=== PATIENT | male | born 1955 | race Caucasian/White ===

== ENCOUNTER 2017-03-06 09:46 | Emergency (ER) | payer BC ==
[2017-03-06] MEDS ORDERED: Dexamethasone IV* 4 MG/ML 1 ML (4 MG) IV SLOW PU ONE (11:03)
[2017-03-06] MEDS ORDERED: Orphenadrine Citrate IV* 30 MG/ML 2 ML VIAL IV ONE (11:03)
[2017-03-06] MEDS ORDERED: Ketorolac INJ* 60 MG/2 ML VIAL IV PUSH ONE (11:03)
[2017-03-06] MEDS ORDERED: NS 0.9% 1000 ML* 1,000 ML IV ONE (11:05)
--- NOTE | 2017-03-06 11:41 | RAD ---
INDICATION: Back pain. COMPARISON: Comparison is made with a prior CT of the abdomen and pelvis from September 09, 2014. TECHNIQUE: 3 views of the lumbar spine were obtained including lateral, AP and a coned-down lateral view of the lumbar sacral junction. FINDINGS: The vertebra are in normal alignment. No fracture is seen. There is moderate to severe disc space narrowing and moderate endplate hypertrophic changes at all lumbar levels consistent with moderate to severe diffuse degenerative disc disease. IMPRESSION: MODERATE TO SEVERE DIFFUSE DEGENERATIVE DISC DISEASE.
--- NOTE | 2017-03-06 11:42 | RAD ---
INDICATION: Back pain. COMPARISON: Comparison is made with a prior chest x-ray study from November 22, 2015. TECHNIQUE: AP and lateral films of the dorsal spine were obtained. FINDINGS: The vertebra are in normal alignment. No fracture is seen. There is disc space narrowing and endplate hypertrophic changes present throughout the dorsal spine consistent with moderate diffuse degenerative disc disease. IMPRESSION: MODERATE DIFFUSE DEGENERATIVE DISC DISEASE.
--- NOTE | 2017-03-06 11:44 | RAD ---
INDICATION: Cough. COMPARISON: There is is made with a prior chest x-ray study from November 22, 2015. TECHNIQUE: Dual-energy PA and lateral views of the chest were obtained. FINDINGS: The heart is within normal limits in size. Mediastinal and hilar contours appear within normal limits. The lungs are clear. There is flattening of the diaphragms suggestive of chronic obstructive pulmonary disease. No pleural effusion is seen. IMPRESSION: FINDINGS SUGGESTIVE OF COPD, NO EVIDENCE FOR ACUTE FINDING.
[2017-03-06 12:51] LABS: Hematocrit 45 % (42-52); Hemoglobin 14.7 g/dl (14.0-18.0); Mean Corpuscular HGB Conc 33 g/dl (31-36); Mean Corpuscular Hemoglobin 29 pg (27-31); Mean Corpuscular Volume 88 fL (80-94); Mean Platelet Volume 9 um3 (7.4-10.4); Red Blood Count 5.08 10^6/ul (4.0-5.4); Red Cell Distribution Width 14 % (10.5-15); White Blood Count 8.8 10^3/ul (3.5-10.8)
[2017-03-06 13:04] LABS: BUN/Creatinine Ratio 15.6 (8-20); C Reactive Protein 3.53 mg/L (< 5.00); Calcium 8.8 mg/dL (8.6-10.3); EGFR African American 102.4 (>60); EGFR Non-African American 79.6 (>60); Globulin 2.8 g/dL (2-4); Total Bilirubin 0.4 mg/dL (0.2-1.0); Total Protein 6.8 g/dL (6.4-8.9)
[2017-03-06 13:12] LABS: Urine Bilirubin Negative (Negative); Urine Glucose Negative (Negative); Urine Nitrite Negative (Negative)
[2017-03-06] MEDS ORDERED: oxyCODONE/Acetamin 5/325 MG* TAB PO ONE (13:34)
[2017-03-06 14:03] VITALS: BP 135/79
--- NOTE | 2017-03-06 17:37 | ED ---
[facility] Catehrine Alfonso, scribed for Balwinder Quesada MD on 03/06/17 at 1030 . Back Pain - HPI Summary HPI Summary: This patient is a 62 year old M presenting to [facility] with a chief complaint of mid back pain since 5 days ago. He reports it feels muscular. The CC is described as spasms. Pt rates the pain 9/10 in severity. Symptoms aggravated by movement and alleviated by nothing. Pt reports a cough and head congestion. Pt denies leg weakness, fecal dysfunction, and urinary symptoms. PMHx of lumbar and cervical herniated discs. - History of Current Complaint Chief Complaint: EDBackInjuryPain Stated Complaint: BACK PAIN Time Seen by Provider: 03/06/17 10:18 Hx Obtained From: Patient Onset/Duration: Sudden Onset, Lasting Days - 5, Still Present Onset/Duration: Started Days Ago - 5, Still Present Back Pain Location: Is Discrete @ - Mid back Severity Initially: Severe Severity Currently: Severe Pain Intensity: 9 Pain Scale Used: 0-10 Numeric Character: Spasmodic Aggravating Symptom(s): Movement Alleviating Symptom(s): Nothing Associated Signs And Symptoms: Positive: Other - Positive cough and head congestion; negative leg weakness, fecal dysfunction, and urinary symptoms. - Allergies/Home Medications Allergies/Adverse Reactions: Allergies Allergy/AdvReac Type Severity Reaction Status Date / Time No Known Allergies Allergy Verified 01/18/17 13:38 PMH/Surg Hx/FS Hx/Imm Hx Endocrine/Hematology History: Denies: Hx Diabetes, Hx Thyroid Disease Cardiovascular History: Reports: Other Cardiovascular Problems/Disorders - RIGHT BUNDLE BRANCH BLOCK Denies: Hx Hypertension, Hx Pacemaker/ICD Respiratory History: Reports: Hx Sleep Apnea Denies: Hx Asthma, Hx Chronic Obstructive Pulmonary Disease (COPD) GI History: Reports: Hx Gastroesophageal Reflux Disease - IN THE PAST, Hx Hiatal Hernia - IN THE PAST Denies: Hx Ulcer, Other GI Disorders History: Reports: Hx Kidney Stones - IN THE PAST Denies: Hx Renal Disease Musculoskeletal History: Reports: Hx Arthritis - NOT DIAGNOSED Denies: Other Musculoskeletal History Sensory History: Reports: Hx Contacts or Glasses - GLASSES Denies: Hx Hearing Aid Opthamlomology History: Reports: Hx Contacts or Glasses - GLASSES Neurological History: Reports: Hx Nerve Disease - NERVE PAIN RIGHT HAND FROM LACERATION Denies: Other Neuro Impairments/Disorders Psychiatric History: Denies: Hx Panic Disorder, Other Psychiatric Issues/Disorders - Cancer History Cancer Type, Location and Year: BASAL CELLS REMOVED - Lt ARM-TOP HEAD Hx Chemotherapy: No Hx Radiation Therapy: No - Surgical History Surgery Procedure, Year, and Place: Gastric bypass 2005;. Right knee meniscus - [facility]-2004;. KIDNEY STONES. Parathyroidectomy;. RIGHT Elbow surg . T/ A A CHILD. [facility];. r- wrist laceration -february 2015 [facility];. TOTAL RIGHT KNEE Hx Anesthesia Reactions: No Infectious Disease History: Denies: Hx Hepatitis, Hx Human Immunodeficiency Virus (HIV), History Other Infectious Disease, Traveled Outside the [place] in Last 30 Days - Family History Known Family History: Positive: Cardiac Disease, Diabetes, Other - cancer - Social History Alcohol Use: Rare Alcohol Amount: 1 PER MONTH Substance Use Type: Reports: None Smoking Status (MU): Former Smoker Type: Cigarettes Amount Used/How Often: 1/2 PACK A DAY Have You Smoked in the Last Year: No Review of Systems Positive: Other - Positive head congestion Positive: Cough Positive: Other - Negative fecal dysfunction Positive: no symptoms reported Positive: Other - Positive mid back pain Neurological: Other - Negative leg weakness All Other Systems Reviewed And Are Negative: Yes Physical Exam - Summary Physical Exam Summary: General: Patient is a well developed male without any distress that is laying comfortably in the stretcher. Skin: [place], warm, dry HEAD AND FACE: No signs of trauma. EYES: PERRLA, EOMI x 2. EARS: Hearing grossly intact. MOUTH: Oropharynx within normal limits. NECK: Supple, trachea is midline, no adenopathy, no JVD. CHEST: Symmetric, no tenderness at palpation LUNGS: CTA bilaterally, no rales, rhonchi or wheezing CVS: RRR, no murmur, rub, or gallop ABDOMEN: soft and Nontender without masses, no guarding or rebound. Bowel sounds are active. No Hepato-splenomegaly. No signs of inguinal hernias. BACK: Patient walked into the ED room with symmetric ambulation, No signs of limping, antalgic, able to bear weight. No signs of trauma, no soft tissue or muscle tenderness, positive spasm in the Paraspinal muscles of the T and L spine. No masses palpated. No CVAT, no flank ecchymosis . No sacroiliac notch tenderness, No saddle anesthesia ROM: flexion/ extension/ lateral bending and rotation, note if limited or causes pain Straight Leg Raise: negative Patellar reflexes: brisk, symmetric Muscle strength lower extremities. Dorsiflexion/ plantar flexion of ankles nomal. normal Heel/ toe walk Lower extremities: Femoral, popliteal, posterior tibial, and pedal pulses with in normal, Rectal: Patient refused the exam Triage Information Reviewed: Yes Vital Signs On Initial Exam: Initial Vitals Temp Pulse Resp BP Pulse Ox 97.8 F 65 20 133/91 95 03/06/17 10:06 03/06/17 10:06 03/06/17 10:06 03/06/17 10:06 03/06/17 10:06 Vital Signs Reviewed: Yes Diagnostics - Vital Signs Vital Signs Temp Pulse Resp BP Pulse Ox 03/06/17 10:06 97.8 F 65 20 133/91 95 - Laboratory Result Diagrams: 03/06/17 12:30 03/06/17 12:30 Lab Statement: Any lab studies that have been ordered have been reviewed, and results considered in the medical decision making process. - Radiology CXR Radiology Interpretation Completed By: Radiologist - FINDINGS SUGGESTIVE OF COPD , NO EVIDENCE FOR ACUTE FINDING. Thoracic Spine X-Ray Radiology Interpretation Completed By: Radiologist - MODERATE DIFFUSE DEGENERATIVE DISC DISEASE. Lumbar Spine X-Ray Radiology Interpretation Completed By: Radiologist - MODERATE TO SEVERE DIFFUSE DEGENERATIVE DISC DISEASE. Re-Evaluation - Re-Evaluation First Eval Re-Evaluation Time: 13:48 Change: Improved Comment: Patient reports his symptoms have improved in the ED course. Back Pain Course/Dx - Course Course Of Treatment: This patient is a 62 year old M presenting to [facility] with a chief complaint of mid back pain since 5 days ago. He reports it feels muscular. The CC is described as spasms. Pt rates the pain 9/10 in severity. Symptoms aggravated by movement and alleviated by nothing. Pt reports a cough and head congestion. Pt denies leg weakness, fecal dysfunction, and urinary symptoms. PMHx of lumbar and cervical herniated discs. Assessment/Plan: Test results without any significant abnormalities. Urinalysis negative for UTI. CXR reveals FINDINGS SUGGESTIVE OF COPD, NO EVIDENCE FOR ACUTE FINDING. Thoracic Spine X-Ray reveals MODERATE DIFFUSE DEGENERATIVE DISC DISEASE. Lumbar Spine X-Ray reveals MODERATE TO SEVERE DIFFUSE DEGENERATIVE DISC DISEASE. In the ED course patient was given Decadron, Toradol, Norflex, and Percocet for the pain. Patients pain improved and he will be discharged with PCP follow up. Patient is hemodynamically stable and A&Ox3. Patient was Promethazine with codeine for a dry cough secondary to an URI. At this point I discussed all the findings and test results with the patient. Patient was instructed to return to the emergency room immediately if any of the symptoms return or worsens. Patient understands and agrees. Patient is able to ambulate freely w/o aid or limp in the ER. Plan of care was discussed with the patient and patient understands and agrees. All questions were answered at patient satisfaction. There were no further complaints or concerns. Neurological exam before discharge: Patient is alert and oriented x 3. No acute neurological deficits. Patient is hemodynamically stable. Patient is to follow up with primary care physician in the next 2 3 days. He understands and agrees. - Diagnoses Differential Diagnosis/HQI/PQRI: Positive: Fracture, Herniated Disc, Strain, Sprain Provider Diagnoses: Back pain Discharge - Discharge Plan Condition: Stable Disposition: HOME Prescriptions: Methocarbamol [Robaxin-750 MG TAB] 750 mg PO TID #12 tab Methylprednisolone [Medrol Dosepak 4 MG*] 4 mg PO .SEE IRMA INSTRUCTION #1 irma Phenyleph-Promethazine W/ Cod [Promethazine Vc/Codeine] 1 syp PO Q6H PRN #120 syp MDD 4 syp PRN Reason: Cough oxyCODONE/Acetamin 5/325 MG* [Percocet 5/325 TAB*] 1 tab PO Q6H PRN #10 tab MDD 4 PRN Reason: Pain Patient Education Materials: Acute Cough (ED), Back Pain (ED) Referrals: Gabriel Cage MD [Primary Care Provider] - The documentation as recorded by the [place] tanner Alfonso accurately reflects the service I personally performed and the decisions made by , Balwinder Quesada MD.
== END 2017-03-06 14:02 | disposition home or self-care (01) ==
LOC: ED 09:46
DX: M54.6 Pain in thoracic spine (principal); M51.36 Other intervertebral disc degeneration, lumbar region; M51.34 Other intervertebral disc degeneration, thoracic region; R05 Cough; R09.89 Other specified symptoms and signs involving the circulatory and respiratory systems; I45.10 Unspecified right bundle-branch block; Z98.84 Bariatric surgery status; Z87.442 Personal history of urinary calculi; Z96.651 Presence of right artificial knee joint; Z87.891 Personal history of nicotine dependence
CPT/HCPCS: 36415; 71020; 72070; 72100; 80053; 81003; 85025; 86140; 96374; 96375; 99283; A9270-GY; J1100; J1885; J2360

== ENCOUNTER 2019-09-12 21:24 | Emergency (ER) | payer BC ==
[2019-09-12 21:54] LABS: ABS Basophils 0.1 10^3/ul (0-0.2); ABS Eosinophils 0.9 10^3/ul (0-0.6); ABS Lymphocytes 1.6 10^3/ul (1.0-4.8); ABS Monocytes 0.8 10^3/ul (0-0.8); ABS Neutrophils 4.1 10^3/ul (1.5-7.7); Eosinophil % 11.7 %; Hematocrit 44 % (42-52); Hemoglobin 14.7 g/dL (14.0-18.0); Mean Corpuscular HGB Conc 34 g/dL (31-36); Mean Corpuscular Hemoglobin 30 pg (27-31); Mean Corpuscular Volume 89 fL (80-94); Mean Platelet Volume 8.8 fL (7.4-10.4); Nucleated Red Blood Cells % 0.1; Platelet Count 253 10^3/uL (150-450); Red Blood Count 4.92 10^6 /uL (4.18-5.48); Red Cell Distribution Width 15 % (10-15); White Blood Count 7.5 10^3/uL (3.5-10.8)
--- NOTE | 2019-09-12 21:55 | ED ---
Shortness of Breath - HPI Summary HPI Summary: Patient complains of intermittent shortness of breath 2 weeks. Symptoms are not related to exertion, denies chest pain. Patient states symptoms occurr while sitting, lasts 20-30 minutes at a time and are improved when patient stands up and walks around. Symptoms are new onset. Patient able to sleep flat , denies peripheral edema, decrease in endurance during daily activities, fever , cough, sore throat, CP, N/3/D, abdominal pain, change in urine, change in BM. Medical history sleep apnea, uses CPAP at night. Positive smoker half a pack a day. Denies EtOH or recreational drug use. - History of Current Complaint Chief Complaint: EDShortnessOfBreath Time Seen by Provider: 09/12/19 21:35 Hx Obtained From: Patient Onset/Duration: Gradual Onset, Lasting Weeks Timing: Intermittent Episodes Lasting: Current Severity: Moderate Dyspnea At: Rest Alleviating Factors: Upright Position Associated Signs & Symptoms: Negative - Allergy/Home Medications Allergies/Adverse Reactions: Allergies Allergy/AdvReac Type Severity Reaction Status Date / Time No Known Allergies Allergy Verified 09/12/19 21:26 PMH/Surg Hx/FS Hx/Imm Hx Endocrine/Hematology History: Denies: Hx Diabetes, Hx Thyroid Disease Cardiovascular History: Reports: Other Cardiovascular Problems/Disorders - RIGHT BUNDLE BRANCH BLOCK Denies: Hx Hypertension, Hx Pacemaker/ICD Respiratory History: Reports: Hx Sleep Apnea Denies: Hx Asthma, Hx Chronic Obstructive Pulmonary Disease (COPD) GI History: Reports: Hx Gastroesophageal Reflux Disease - IN THE PAST, Hx Hiatal Hernia - IN THE PAST Denies: Hx Ulcer, Other GI Disorders History: Reports: Hx Kidney Stones - IN THE PAST Denies: Hx Renal Disease Musculoskeletal History: Reports: Hx Arthritis - NOT DIAGNOSED, Hx Back Problems Denies: Other Musculoskeletal History Sensory History: Reports: Hx Contacts or Glasses - GLASSES Denies: Hx Hearing Aid Opthamlomology History: Reports: Hx Contacts or Glasses - GLASSES Neurological History: Reports: Hx Nerve Disease - NERVE PAIN RIGHT HAND FROM LACERATION Denies: Other Neuro Impairments/Disorders - PAIN CLINIC PT. Psychiatric History: Denies: Hx Panic Disorder, Other Psychiatric Issues/Disorders - Cancer History Cancer Type, Location and Year: BASAL CELLS REMOVED - Lt ARM-TOP HEAD Hx Chemotherapy: No Hx Radiation Therapy: No - Surgical History Surgery Procedure, Year, and Place: Gastric bypass 2005;. Right knee meniscus - [facility]-2004;. KIDNEY STONES. Parathyroidectomy;. RIGHT Elbow surg s. T/ A A CHILD. [facility];. r- wrist laceration -february 2015 [facility];. TOTAL RIGHT KNEE Hx Anesthesia Reactions: No Infectious Disease History: No Infectious Disease History: Denies: Hx Hepatitis, Hx Human Immunodeficiency Virus (HIV), History Other Infectious Disease, Traveled Outside the [place] in Last 30 Days - Family History Known Family History: Positive: Cardiac Disease, Diabetes, Other - cancer - Social History Alcohol Use: Occasionally Alcohol Amount: 2/month Substance Use Type: Reports: None Smoking Status (MU): Light Every Day Tobacco Smoker Type: Cigarettes Amount Used/How Often: 1/2 PACK A DAY Have You Smoked in the Last Year: No Review of Systems Constitutional: Negative Eyes: Negative ENT: Negative Cardiovascular: Negative Positive: Shortness Of Breath Gastrointestinal: Negative Genitourinary: Negative Musculoskeletal: Negative Skin: Negative Neurological: Negative Psychological: Normal All Other Systems Reviewed And Are Negative: Yes Physical Exam - Summary Physical Exam Summary: No peripheral edema. Lung sounds clear to auscultation, but diminished. Abdomen soft nontender. Triage Information Reviewed: Yes Vital Signs On Initial Exam: Initial Vitals Temp Pulse Resp BP Pulse Ox 97.9 F 62 16 166/95 98 09/12/19 21:25 09/12/19 21:25 09/12/19 21:25 09/12/19 21:25 09/12/19 21:25 Vital Signs Reviewed: Yes Appearance: Positive: Well-Appearing Skin: Positive: Warm Head/Face: Positive: Normal Head/Face Inspection Eyes: Positive: Normal ENT: Positive: Normal ENT inspection Neck: Positive: Supple Respiratory/Lung Sounds: Positive: Clear to Auscultation Cardiovascular: Positive: Normal Abdomen Description: Positive: Nontender Musculoskeletal: Positive: Normal Neurological: Positive: Normal Psychiatric: Positive: Normal AVPU Assessment: Alert - Regulo Coma Scale Best Eye Response: 4 - Spontaneous Best Motor Response: 6 - Obeys Commands Best Verbal Response: 5 - Oriented Coma Scale Total: 15 Procedures - Sedation Patient Received Moderate/Deep Sedation with Procedure: No Diagnostics - Vital Signs Vital Signs Temp Pulse Resp BP Pulse Ox 09/12/19 21:25 97.9 F 62 16 166/95 98 - Laboratory Lab Results: Lab Results 09/12/19 Range/Units 21:42 WBC 7.5 (3.5-10.8) 10^3/uL RBC 4.92 (4.18-5.48) 10^6 /uL Hgb 14.7 (14.0-18.0) g/dL Hct 44 (42-52) % MCV 89 (80-94) fL MCH 30 (27-31) pg MCHC 34 (31-36) g/dL RDW 15 (10-15) % Plt Count 253 (150-450) 10^3/uL MPV 8.8 (7.4-10.4) fL Neut % (Auto) 54.6 % Lymph % (Auto) 22.0 % Hutchinson % (Auto) 10.3 % Eos % (Auto) 11.7 % Baso % (Auto) 1.4 % Absolute Neuts (auto) 4.1 (1.5-7.7) 10^3/ul Absolute Lymphs (auto) 1.6 (1.0-4.8) 10^3/ul Absolute Monos (auto) 0.8 (0-0.8) 10^3/ul Absolute Eos (auto) 0.9 H (0-0.6) 10^3/ul Absolute Basos (auto) 0.1 (0-0.2) 10^3/ul Absolute Nucleated RBC 0.0 10^3/ul Nucleated RBC % 0.1 Result Diagrams: 09/12/19 21:42 09/12/19 21:42 Lab Statement: Any lab studies that have been ordered have been reviewed, and results considered in the medical decision making process. Course/Dx - Course Course Of Treatment: Patient complains of intermittent shortness of breath 2 weeks. Symptoms are not related to exertion, denies chest pain. Patient states symptoms occurr while sitting, lasts 20-30 minutes at a time and are improved when patient stands up and walks around. Symptoms are new onset. Patient able to sleep flat, denies peripheral edema, decrease in endurance during daily activities, fever, cough, sore throat, CP, N/3/D, abdominal pain, change in urine, change in BM. Medical history sleep apnea, uses CPAP at night. Positive smoker half a pack a day. Denies EtOH or recreational drug use. Vital signs within normal limits. Chest x-ray unremarkable. Labs unremarkable. EKG sinus bradycardia, heart rate of 56, RBBB. Same as prior. History of bradycardia per prior EKGs. No change with DuoNeb. Discussed patient with attending Dr. Mendez who recommended patient follow-up with primary care and pulmonology. - Diagnoses Provider Diagnoses: Dyspnea Discharge ED - Sign-Out/Discharge Documenting (check all that apply): Patient Departure - Discharge Plan Condition: Stable Disposition: HOME Patient Education Materials: Shortness of Breath (ED) Referrals: Gabriel Cage MD [Primary Care Provider] - Viviana Johnson MD [Medical Doctor] - Additional Instructions: Follow-up with primary care and pulmonology Dr Johnson for further evaluation. Return to the ED for any new or worsening symptoms. - Billing Disposition and Condition Condition: STABLE Disposition: Home
--- OUTSIDE RECORDS SUMMARY | 2019-09-12 22:05 | XMS REPORT | Continuity of Care Document ---
:1955 External Reference #:[id number] Author Name Lázaro Estrada MD Address [address] [place] [address] Care Team Providers Name Role Phone Gabriel Cage M.D. - Family Medicine Care Team Information Director Of Strategic Sales Problems Active Problems Provider Date Anaphylaxis Lázaro Estrada MD Onset: 05/30/2012 Social History Type Date Description Comments Sex Unknown Tobacco Use Start: Unknown End: Former Cigarette Smoker x 30 yrs, quit age Unknown 1/2 Pack Daily 61 Smoking Status Reviewed: 07/30/19 Former Cigarette Smoker x 30 yrs, quit age 1/2 Pack Daily 61 Tobacco Use Start: Unknown has never smoked cigars Tobacco Use Start: Unknown has never smoked a pipe Smokeless Tobacco has never used smokeless tobacco ETOH Use Currently rarely consumes alcohol Recreational Drug Use never used drugs Tobacco Use Start: Unknown Patient has never smoked Allergies, Adverse Reactions, Alerts Description No Known Drug Allergies Medications Active Medications SIG Qnty Indications Ordering Provider Date Vitamin B12 1 by mouth every Gabriel Cage M.D. 1000mcg day Tablets ER Vitamin C 1 by mouth every Gabriel Cage M.D. 1000mg Tablets day Omeprazole Swanstrom P.A., 20mg Capsules Veor Cornejo Description No Information Available Vital Signs Date Vital Result Comment 07/30/2019 2:40pm Weight 260.00 lb Weight 117.936 kg Height 69.02 inches 5'9.02" Height in cm's 175.3 cm BMI (Body Mass Index) 38.4 kg/m2 10/04/2017 9:36am Weight 260.00 lb Weight 117.936 kg Height 69.02 inches 5'9.02" Height in cm's 175.3 cm BMI (Body Mass Index) 38.4 kg/m2 Results Description No Information Available Procedures Date Code Description Status 07/30/2019 41589 Fiberoptic Laryngoscopy Completed Medical Devices Description No Information Available Encounters Description No Information Available Assessments Date Code Description Provider 07/30/2019 R13.10 Dysphagia, unspecified Lázaro Estrada MD 07/30/2019 R07.0 Pain in throat Lázaro Estrada MD Plan of Treatment No Information Available Functional Status Description No Information Available Mental Status Description No Information Available Referrals Description No Information Available
[2019-09-12 22:09] LABS: Albumin/Globulin Ratio 1.5 (1-3); BUN/Creatinine Ratio 17.4 (8-20); C Reactive Protein 2.63 mg/L (<8.01); Calcium 8.8 mg/dL (8.6-10.3); EGFR African American 77.7 (>60); EGFR Non-African American 64.2 (>60); Globulin 2.7 g/dL (2-4); Total Bilirubin 0.3 mg/dL (0.2-1.0); Total Protein 6.7 g/dL (6.4-8.9)
[2019-09-12 22:14] LABS: CKMB ng/mL 1.5 ng/mL (0.6-6.3)
[2019-09-12 22:24] LABS: TSH (Thyroid Stimulating Horm) 0.59 mcIU/mL (0.34-5.60)
[2019-09-12] MEDS ORDERED: Albuterol/Ipratropium NEB.SOL* Albuterol 2.5 MG/Ipratropium 0.5 MG 3 ML INH ONE (22:43)
[2019-09-12 23:43] LABS: Urine Appearance Clear; Urine Bilirubin Negative (Negative); Urine Blood 1+ (Negative); Urine Color Yellow; Urine Glucose Negative (Negative); Urine Ketones Negative (Negative); Urine Nitrite Negative (Negative); Urine Protein Negative (Negative); Urine Urobilinogen Negative (Negative)
[2019-09-12 23:45] LABS: Urine Bacteria Absent (Absent); Urine Red Blood Cell Trace(0-2/hpf) (Absent); Urine White Blood Cell Trace(0-5/hpf) (Absent)
[2019-09-13 00:27] VITALS: BP 120/75
== END 2019-09-13 00:26 | disposition home or self-care (01) ==
LOC: ED 21:24
DX: R06.00 Dyspnea, unspecified (principal); R00.1 Bradycardia, unspecified; I45.10 Unspecified right bundle-branch block; K21.9 Gastro-esophageal reflux disease without esophagitis; G47.30 Sleep apnea, unspecified; Z98.84 Bariatric surgery status; Z96.651 Presence of right artificial knee joint; F17.210 Nicotine dependence, cigarettes, uncomplicated
CPT/HCPCS: 36415; 71046; 80053; 81003; 81015; 82553; 83880; 84443; 84484; 85025; 86140; 87086; 93005; 99283; A9270-GY

== ENCOUNTER 2019-09-17 20:41 | Emergency (ER) | payer BC ==
--- OUTSIDE RECORDS SUMMARY | 2019-09-17 20:52 | XMS REPORT | Continuity of Care Document ---
:1955 External Reference #:[id number] Author Name Marry Alcazar, ISIDRO Address [address] [place] [address] Care Team Providers Name Role Phone Gabriel Cage MD - Family Medicine Care Team Information Cellular Phone Repairer [phone] Visiting Nurse Services - Home Health Care Team Information Cellular Phone Repairer [phone] [facility] - Allergy & Care Team Information Cellular Phone Repairer [phone] Immunology Viviana Johnson - Pulmonary Disease Care Team Information Cellular Phone Repairer Carlos A Workman MD - Rheumatology Care Team Information Cellular Phone Repairer [phone] Problems Active Problems Provider Date Ready to stop smoking Gabriel Cage M.D. Onset: 06/21/2018 Pain in thoracic spine Gabriel Cage M.D. Onset: 06/21/2018 Low back pain Gabriel Cage M.D. Onset: 06/21/2018 Degenerative joint disease involving Gabriel Cage M.D. Onset: 07/05/2016 multiple joints Malaise and fatigue Gabriel Cage M.D. Onset: 07/05/2016 Disorder of thyroid gland Gabriel Cage M.D. Onset: 07/05/2016 Hyperlipidemia screening Gabriel Cage M.D. Onset: 07/05/2016 Benign prostatic hypertrophy without outflow Gabriel Cage M.D. Onset: obstruction Localized, primary osteoarthritis Gabriel Cage M.D. Onset: 11/14/2015 Encounter for other preprocedural Gabriel Cage M.D. Onset: 11/14/2015 examination Skin sensation disturbance Gabriel Cage M.D. Onset: 11/14/2015 Right bundle branch block Gabriel Cage M.D. Onset: 11/14/2015 Open wound of nose without complication Umberto Morales M.D. Onset: 2013 Social History Type Date Description Comments Sex Unknown Tobacco Use Start: Unknown End: Former Cigarette Smoker Patient concerned Unknown because of his father's history of lung cancer Tobacco Use Start: Unknown Light tobacco smoker (10 cutting back 09/15/2019 or fewer cigarettes/day) - has chantix plans to take it Smoking Status Reviewed: 09/15/19 Light tobacco smoker (10 cutting back 09/15 or fewer cigarettes/day) - has chantix plans to take it Allergies, Adverse Reactions, Alerts Description No Known Drug Allergies Medications Active Medications SIG Qnty Indications Ordering Date Provider Albuterol Sulfate take 1-2 puffs 17gm Pat CIvis 09/16/2019 HFA inhaled every 4 hours ISIDRO Hastings 108(90Base) as needed for mcg/Act Aerosol shortness of breath Shingrix 1 vaccine 1units Z23 Marry Earlene 09/15/2019 administered ISIDRO Alcazar 50mcg/0.5ML intramuscular Suspension Rec Omeprazole 1 by mouth every day 90caps Gabriel Murrell 09/01/[address] Urrutia tid Unknown 600mg Tablets Tylenol PM Extra q hs Unknown Strength 500-25mg Tablets Ibuprofen prn Unknown Immunizations CPT Code Status Date Vaccine Lot # [id number] Given 09/15/2019 Pneumococcal Immunization [id number] Vital Signs Date Vital Result Comment 09/15/2019 3:04pm BP Systolic 102 mmHg BP Diastolic 62 mmHg Heart Rate 80 /min Body Temperature 98.6 F Respiratory Rate 16 /min Height 71 inches 5'11" Weight 254.00 lb BMI (Body Mass Index) 35.4 kg/m2 09/01/2018 4:35pm BP Systolic 138 mmHg BP Diastolic 78 mmHg Heart Rate 74 /min Body Temperature 98.2 F Respiratory Rate 16 /min Height 71 inches 5'11" Weight 256.00 lb BMI (Body Mass Index) 35.7 kg/m2 Results Test Acquired Date Facility Test Result H/L Range Note Laboratory test 09/15/2019 [facility] Dimer 482 ng/mL High 0.0- 400 finding (607)- - Quant (Fma) Inr/Protime 09/15/2019 [facility] [place] Inr 1.03 Normal 0.82-1.09 1 Laboratory test 09/15/2019 [facility] Partial 32.7 Normal 26.0-38.0 2 finding Thrombo Time seconds PTT CBC Auto Diff 09/12/2019 [facility] [facility] White Blood 7.5 10^3/uL Normal 3.5-10.8 Count Red Blood Count 4.92 10^6/uL Normal 4.18-5.48 Hemoglobin 14.7 g/dL Normal 14.0-18.0 Hematocrit 44 % Normal 42-52 Mean Corpuscular Volume 89 fL Normal 80-94 Mean Corpuscular Hemoglobin 30 pg Normal 27-31 Mean Corpuscular HGB Conc 34 g/dL Normal 31-36 Red Cell Distribution Width 15 % Normal 10-15 Platelet Count 253 10^3/uL Normal 150-450 Mean Platelet Volume 8.8 fL Normal 7.4-10.4 Abs Neutrophils 4.1 10^3/uL Normal 1.5-7.7 Abs Lymphocytes 1.6 10^3/uL Normal 1.0-4.8 Abs Monocytes 0.8 10^3/uL Normal 0-0.8 Abs Eosinophils 0.9 10^3/uL High 0-0.6 Abs Basophils 0.1 10^3/uL Normal 0-0.2 Abs Nucleated RBC 0.0 10^3/uL Granulocyte % 54.6 % Lymphocyte % 22.0 % Monocyte % 10.3 % Eosinophil % 11.7 % Basophil % 1.4 % Nucleated Red Blood Cells % 0.1 Laboratory test 09/12/2019 [facility] [place] B-Type Natriuretic 58 pg/mL <=100 finding Peptide BNP Comp Metabolic Panel 09/12/2019 [facility] [place] Sodium 138 mmol/L Normal 135-145 Potassium 4.0 mmol/L Normal 3.5-5.0 Chloride 104 mmol/L Normal 101-111 Co2 Carbon Dioxide 28 mmol/L Normal 22-32 Anion Gap 6 mmol/L Normal 2-11 Glucose 119 mg/dL High 70-100 Blood Urea Nitrogen 20 mg/dL Normal 6-24 Creatinine 1.15 mg/dL Normal 0.67-1.17 BUN/Creatinine Ratio 17.4 Normal 8-20 Calcium 8.8 mg/dL Normal 8.6-10.3 Total Protein 6.7 g/dL Normal 6.4-8.9 Albumin 4.0 g/dL Normal 3.2-5.2 Globulin 2.7 g/dL Normal 2-4 Albumin/Globulin Ratio 1.5 Normal 1-3 Total Bilirubin 0.30 mg/dL Normal 0.2-1.0 Alkaline Phosphatase 59 U/L Normal 34-104 Alt 10 U/L Normal 7-52 Ast 11 U/L Low 13-39 Egfr Non- 64.2 >60 Egfr 77.7 >60 3 Laboratory test finding 09/12/2019 [facility] [place] C Reactive Protein 2.63 mg/L Normal <8.01 Troponin-I (TnI) 0.00 ng/mL <0.03 4 CKMB 09/12/2019 [facility] [place] CKMB ng/mL 1.5 ng/mL Normal 0.6-6.3 Laboratory test 09/12/2019 [facility] [place] TSH (Thyroid 0.59 mcIU/mL Normal 0.34- 5.60 finding Stim Horm) Urinalysis Profile 09/12/2019 [facility] [place] Urine Color Yellow Urine Appearance Clear Urine Specific [place] 1.010 Normal 1.010-1.030 Urine pH 6.0 Normal 5-9 Urine Urobilinogen Negative Negative Urine Ketones Negative Negative Urine Protein Negative Negative Urine Leukocytes Negative Negative Urine Blood 1+ Abnormal Negative Urine Nitrite Negative Negative Urine Bilirubin Negative Negative Urine Glucose Negative Negative Urine White Blood Cell Trace(0-5/hpf) Absent Urine Red Blood Cell Trace(0-2/hpf) Absent Urine Bacteria Absent Absent Urine Culture And Sensitivities 09/12/2019 [facility] [place] Urine Culture SEE RESULT BELOW 5 1 Standard intensity warfarin therapeutic range: 2.0-3.0 High intensity warfarin therapeutic range: 2.5-3.5 2 2 light blue filled to the lines [id number] 3 Because ethnic data is not always readily available, this report includes an eGFR for both -Americans and non- Americans. The National Kidney Disease Education Program (NKDEP) does not endorse the use of the MDRD equation for patients that are not between the ages of 18 and 70, are , have extremes of body size, muscle mass, or nutritional status, or are non- or non-. According to the National Kidney Foundation, irrespective of diagnosis, the stage of the disease is based on the level of kidney function: Stage Description GFR(mL/min/1.73 m(2)) 1 Kidney damage with normal or decreased GFR 90 2 Kidney damage with mild decrease in GFR 60-89 3 Moderate decrease in GFR 30-59 4 Severe decrease in GFR 15-29 5 Kidney failure <15 (or dialysis) 4 Troponin-I testing on Plasma Separator Tubes (PST) has a known false positive rate of 0.20-0.40%. All positive troponins reflex immediately to secondary confirmatory testing. Using the [employer] DxI 800 Access Immunoassay systems, the 99th percentile upper reference limit was demonstrated to be < 0.03 ng/mL. 5 SEE RESULT BELOW Name: HARINDER EDGE : [address]: Shy Mendez MD Acct: [id number] Unit: [id number] AGE: 64 Location: ED Re09/12/19 SEX: M Status: DEP ER SPEC: [id number] [place]: 09/12/[address] [facility] [address]: Tyler FERRARA REQ: [id number] RECD: 09/12/19 STATUS: MINERVA LYONS DR: Shy Cage MD _ SOURCE: URINE SPDESC: ORDERED: Urine Culture Procedure Result Reported Site Urine Culture Final 09/14/19- 0841 ML Few Enterobacteriacae; possible contamination. * [facility] - Main Lab . END OF REPORT DEPARTMENT OF PATHOLOGY, [address] [place] [address] Nirav Arriaga M.D. Director [facility] # [id number] Procedures Date Code Description Status 07/22/2017 88640340 Colonoscopy Completed 05/19/2000 [id number] Colonoscopy Completed Medical Devices Description No Information Available Encounters Description No Information Available Assessments Date Code Description Provider 09/15/2019 R06.02 Shortness of breath Marry Alcazar NP 09/15/2019 Z23 Encounter for immunization Marry Alcazar NP 09/15/2019 F17.210 Nicotine dependence, cigarettes, Marry Alcazar NP uncomplicated Plan of Treatment 09/15/2019 - Marry Alcazar, NPR06.02 Shortness of breathComments:Patient was instructed to call or return if symptoms of shortness of breath worsen will check labs referral to [id number] Encounter for immunizationNew Medication:Shingrix 50 mcg/0.5ML - 1 vaccine administered intramuscularComments: Pneumovax has been [id number] Nicotine dependence, cigarettes, uncomplicatedComments:What are the benefits of quitting smoking?Quitting smoking can lower your chances of getting or dying from heart disease, lung disease, kidney failure, infection, or cancer. It can also lower your chances of getting osteoporosis, a condition that makes your bones weak. Plus, quitting smoking can help your skin look younger and reduce the chances that you will have problems with sex.Quitting smoking will improve your health no matter how old you are, and no matter how long or how much you have smoked.What should I do if I want to quit smoking?The letters in the word "START" can help you remember thesteps to take:S = Set a quit date.T = Tell family, friends, and the people around you that you plan to quit.A = Anticipate or plan ahead for the tough times you'll face while quitting.R = Remove cigarettes and other tobacco products from your home, car, and work.T = Talk to your doctor about getting help to quit.How can my doctor or nurse help?Your doctor or nurse can give you advice on the best way to quit. He or she can also put you in touch with counselors or other people you can call for support. Plus, your doctor or nurse can give you medicines to:Reduce your craving for cigarettesReduce the unpleasant symptoms that happen when you stop smoking (called "withdrawal symptoms").You can also get help from a free phone line (1-373-AXTH-NOW) or go online to www.smokefree.gov.What are the symptoms of withdrawal?The symptoms include:Trouble sleepingBeing irritable, anxious or restlessGetting frustrated or angryHaving trouble thinking clearlySome people who stop smoking become temporarily depressed. Some people need treatment for depression, such as counseling or antidepressant medicines. Depressed people might:No longer enjoy or care about doing the things they used to like to doFeel sad, down, hopeless, nervous, or cranky most of the day, almost every dayLose or gain weightSleep too much or too littleFeel tired or like they have no energyFeel guilty or like they are worth nothingForget thingsor feel confusedMove and speak more slowly than usualAct restless or have trouble staying stillThinkabout or suicideIf you think you might be depressed, see your doctor or nurse. Only someone trained in mental health can tell for sure if you are depressed.If you ever feel like you might hurt yourself, go straight to the nearest emergency department. Or you can call for an ambulance (in the [place] and [place], dial 9-1) or call your doctor or nurse right away and tell them it is an emergency. Youcan also reach the [place] National Suicide Prevention Lifeline at or www.suicidepreventionlifeline.org.How do medicines help you stop smoking? Different medicines work in different ways:Nicotine replacement therapy eases withdrawal and reduces your body's craving for nicotine, the main drug found in cigarettes. There are different forms of nicotine replacement, including skin patches, lozenges, gum, nasal sprays, and "puffers" or inhalers. Many can be bought without a prescription, while others might require one.Bupropion is a prescription medicine that reduces your desire to smoke. This medicine is sold under the brand names Zyban and Wellbutrin. It is also available in a generic version, which is cheaper than brand name medicines.Varenicline (brand names: Chantix, Champix) is a prescription medicine that reduces withdrawal symptoms and cigarette cravings. If you think you'd like to take varenicline and you have a history of depression, anxiety, or heart disease, discuss this with your doctor or nurse before taking the medicine. Varenicline can also increase the effects of alcohol in some people. It's a good idea to limit drinking while you' re taking it, at least until you know howit affects you.How does counseling work ?Counseling can happen during formal office visits or just over the phone. A counselor can help you:Figure out what triggers your smoking and what to do insteadOvercome cravingsFigure out what went wrong when you tried to quit beforeWhat works best?Studies show that people have the best luck at quitting if they take medicines to help them quit and work with a counselor. It might also be helpful to combine nicotine replacement with one of the prescription medicines that help people quit. In some cases, it might even make sense to take bupropion and varenicline together.What about e-cigarettes?Sometimes people wonder if using electronic cigarettes, or "e-cigarettes," might help them quit smoking. Using e-cigarettes is also called "vaping." Doctors do not recommend e-cigarettes in place of medicines and counseling. That's because e- cigarettes still contain nicotine as well as other substances that might be harmful. It's not clear how they can affect a person's health in the termite control servicer.Will I gain weight if I quit?Yes, you might gain a few pounds. But quittingsmoking will have a much more positive effect on your health than weighing a few pounds more. Plus, you can help prevent some weight gain by being more active and eating less. Taking the medicine bupropion might help control weight gain.What else can I do to improve my chances of quitting?You can :Start exercising.Stay away from smokers and places that you associate with smoking. If people close to you smoke, ask them to quit with you.Keep gum, hard candy, or something to put in your mouth handy. If you get a craving for a cigarette, try one of these instead.Don't give up, even if you start smoking again. It takes most people a few tries before they succeed.AllComments: Medication Management Patient Understands medications he 's taking? Yes No Are there Barriers to Adherence? Yes No Has the patient been asked about herbal supplements and therapies, andOTC meds? Yes No Care Plan1. Patient has been queried about patient's goals/preferences and functional/lifestyle goals at relevant visits. If relevant, describe: na2. Treatment goals as explained to the patient: above3. Are there barriers to meeting treatment goals? Yes No If Yes, please describe: disease process, comorbid conditions, polypharmacy4. Self-Management goals as described to the patient: Yes NoAs always, we strongly encourage a healthy diet and making physical activity a part of your every day life. If you have questions about how or where to start, please contact the office.Follow up: Please schedule a full annual visit at your earliest convenience Last appointment with MD: 08/2018 Functional Status Description No Information Available Mental Status Description No Information Available Referrals Refer to Reason for Referral Status Appt Date Viviana Johnson Consult and treat shortness of breath. Office note, Sent labs and triage faxed. [address] [place] [address],[place].. [id number] [phone]
--- OUTSIDE RECORDS SUMMARY | 2019-09-17 20:52 | XMS REPORT | Continuity of Care Document ---
:1955 External Reference #:[id number] Author Name Megan Parish M.D. (transmitted by agent of provider Sole Hastings) Address [address] [place] [address] Care Team Providers Name Role Phone Gabriel Cage MD - Family Medicine Care Team Information [employer] Problems Active Problems Provider Date Localized, primary osteoarthritis Lore Dickey M.D. Onset: 08/03/2015 Full thickness rotator cuff tear Santana Arango MD Onset: 02/05/2017 Arthroplasty of knee Lore Dickey M.D. Onset: 05/04/2016 Social History Type Date Description Comments Sex Unknown Tobacco Use Start: Unknown End: Former Cigarette Smoker Unknown Smoking Status Reviewed: 09/14/19 Former Cigarette Smoker ETOH Use Currently consumes a couple drinks per alcohol month Tobacco Use Start: Unknown End: Patient is a former smoked for 25yrs Unknown smoker 1/2PPD Recreational Drug Use Denies Drug Use Exercise Type/Frequency Exercises sporadically Allergies, Adverse Reactions, Alerts Description No Known Drug Allergies Medications Active Medications SIG Qnty Indications Ordering Provider Date Amoxicillin Take 2 tablets 10caps Lore Dickey M.D. 09/02/2017 500mg by mouth 1 hour Capsules prior to dental work. Neurontin 2 tabs by mouth 180caps Megan Parish, 10/05/2015 300mg three times a M.D. Capsules day mdd 6 Tylenol PM Extra 2 tabs at Unknown Strength bedtime 500-25mg Tablets Medications Administered in Office Medication SIG Qnty Indications Ordering Provider Date Depomedrol 40MG Lore Dickey M.D. 08/08/2016 Injection Depomedrol 40MG Megan Parish M.D. 06/06/2016 Injection Synvisc Or Synvisc-One Liz Mcnair, ISIDRO 10/28/2015 Injection 1 MG Injection Synvisc Or Synvisc-One SUSANA SilvaC 10/21/2015 Injection 1 MG Injection Synvisc Or Synvisc-One Lore Dickey M.D. 10/14/2015 Injection 1 MG Injection Depomedrol 40MG Loer Dickey M.D. 08/03/2015 Injection Immunizations CPT Code Status Date Vaccine Lot # [id number] Given 05/28/2016 Influenza Virus 3Yrs & Over Vital Signs Date Vital Result Comment 09/14/2019 8:18am Height 71 inches 5'11" Weight 240.00 lb Heart Rate 76 /min Body Temperature 96.5 F O2 % BldC Oximetry 97 % BMI (Body Mass Index) 33.5 kg/m2 08/28/2017 9:23am Height 71 inches 5'11" Weight 250.00 lb Heart Rate 69 /min BP Systolic 141 mmHg BP Diastolic 82 mmHg Body Temperature 96.4 F BMI (Body Mass Index) 34.9 kg/m2 Results Description No Information Available Procedures Date Code Description Status 07/22/2017 [id number] Colonoscopy Completed Medical Devices Description No Information Available Encounters Description No Information Available Assessments Description No Information Available Plan of Treatment No Information Available Functional Status Description No Information Available Mental Status Description No Information Available Referrals Description No Information Available
[2019-09-17 21:55] LABS: ABS Eosinophils 0.7 10^3/ul (0-0.6); ABS Lymphocytes 1.9 10^3/ul (1.0-4.8); ABS Monocytes 0.9 10^3/ul (0-0.8); ABS Neutrophils 5.1 10^3/ul (1.5-7.7); Eosinophil % 8.7 %; Hematocrit 42 % (42-52); Hemoglobin 14.4 g/dL (14.0-18.0); Lymphocyte % 21.9 %; Mean Corpuscular HGB Conc 35 g/dL (31-36); Mean Corpuscular Hemoglobin 30 pg (27-31); Mean Corpuscular Volume 87 fL (80-94); Mean Platelet Volume 8.9 fL (7.4-10.4); Nucleated Red Blood Cells % 0.1; Platelet Count 231 10^3/uL (150-450); Red Blood Count 4.75 10^6 /uL (4.18-5.48); Red Cell Distribution Width 14 % (10-15); White Blood Count 8.6 10^3/uL (3.5-10.8)
[2019-09-17 22:02] LABS: INR 0.97 (0.82-1.09)
[2019-09-17 22:12] LABS: Albumin 3.9 g/dL (3.2-5.2); Albumin/Globulin Ratio 1.4 (1-3); BUN/Creatinine Ratio 16.7 (8-20); Calcium 8.7 mg/dL (8.6-10.3); EGFR African American 69.9 (>60); EGFR Non-African American 57.8 (>60); Globulin 2.8 g/dL (2-4); Potassium 4.3 mmol/L (3.5-5.0); Total Bilirubin 0.3 mg/dL (0.2-1.0); Total Protein 6.7 g/dL (6.4-8.9)
[2019-09-17] MEDS ORDERED: Iodixanol* (CONTRAST) 320 MG/ML 100 ML SDV IV ONE (22:17)
--- NOTE | 2019-09-17 22:41 | ED ---
Shortness of Breath - HPI Summary HPI Summary: This pt is a 64 Y/O M presenting to [facility] with a CC of intermittent SOB while at rest since 08/27/2019. He states that he was in [facility] recently and states that he was sent to his PCP for a follow up who requested a D-Dimer. His D-Dimer was unusually high and he was sent back to [facility] for a follow up to rule out a PE. He states that his episodes last anywhere from 5-30 minutes and that they can be on and off for an extended period of time. He denies any CP, fevers, chills, headaches, or N/V during these episodes. He states that he has back pain below his scapula on the R side. He states that he has no aggravating or alleviating factors. He has a PMHx of sleep apnea. He states that he has a SHx of being a current smoker and drinking alcohol occasionally. He denies any drugs. He states that his father had a Hx of lung CA. - History of Current Complaint Chief Complaint: EDShortnessOfBreath Time Seen by Provider: 09/17/19 21:32 Hx Obtained From: Patient Onset/Duration: Sudden Onset, Still Present Timing: Intermittent Episodes Lasting: - 5-30 minutes Current Severity: None Dyspnea At: Rest Aggravating Factors: Nothing Alleviating Factors: Nothing Associated Signs & Symptoms: Negative - CP, fevers, chills, headaches, or N/V, Wheezing - during episodes - Allergy/Home Medications Allergies/Adverse Reactions: Allergies Allergy/AdvReac Type Severity Reaction Status Date / Time No Known Allergies Allergy Verified 09/12/19 21:26 Home Medications: Home Medications Albuterol HFA INHALER* [Ventolin HFA Inhaler*] 2 puff INH Q6H PRN 09/17/19 [ History Confirmed 09/17/19] PMH/Surg Hx/FS Hx/Imm Hx Previously Healthy: Yes Endocrine/Hematology History: Denies: Hx Diabetes, Hx Thyroid Disease Cardiovascular History: Reports: Other Cardiovascular Problems/Disorders - RIGHT BUNDLE BRANCH BLOCK Denies: Hx Hypertension, Hx Pacemaker/ICD Respiratory History: Reports: Hx Sleep Apnea Denies: Hx Asthma, Hx Chronic Obstructive Pulmonary Disease (COPD) GI History: Reports: Hx Gastroesophageal Reflux Disease - IN THE PAST, Hx Hiatal Hernia - IN THE PAST Denies: Hx Ulcer, Other GI Disorders History: Reports: Hx Kidney Stones - IN THE PAST Denies: Hx Renal Disease Musculoskeletal History: Reports: Hx Arthritis - NOT DIAGNOSED, Hx Back Problems Denies: Other Musculoskeletal History Sensory History: Reports: Hx Contacts or Glasses - GLASSES Denies: Hx Hearing Aid Opthamlomology History: Reports: Hx Contacts or Glasses - GLASSES Neurological History: Reports: Hx Nerve Disease - NERVE PAIN RIGHT HAND FROM LACERATION Denies: Other Neuro Impairments/Disorders - PAIN CLINIC PT. Psychiatric History: Denies: Hx Panic Disorder, Other Psychiatric Issues/Disorders - Cancer History Cancer Type, Location and Year: BASAL CELLS REMOVED - Lt ARM-TOP HEAD Hx Chemotherapy: No Hx Radiation Therapy: No - Surgical History Surgical History: Yes Surgery Procedure, Year, and Place: Gastric bypass 2005;. Right knee meniscus - [facility]-2004;. KIDNEY STONES. Parathyroidectomy;. RIGHT Elbow surg . T/ A A CHILD. [facility];. r- wrist laceration -february 2015 [facility];. TOTAL RIGHT KNEE Hx Anesthesia Reactions: No - Immunization History Immunizations Up to Date: Yes Infectious Disease History: No Infectious Disease History: Denies: Hx Hepatitis, Hx Human Immunodeficiency Virus (HIV), History Other Infectious Disease, Traveled Outside the [place] in Last 30 Days - Family History Known Family History: Positive: Cardiac Disease, Diabetes, Other - cancer - Social History Occupation: Retired Lives: With Family Alcohol Use: Occasionally Alcohol Amount: 2/month Hx Substance Use: No Substance Use Type: Reports: None Smoking Status (MU): Light Every Day Tobacco Smoker Type: Cigarettes Amount Used/How Often: 1/2 PACK A DAY Have You Smoked in the Last Year: Yes Review of Systems Negative: Fever, Chills Negative: Chest Pain Positive: Shortness Of Breath Negative: Vomiting, Nausea Negative: Headache All Other Systems Reviewed And Are Negative: Yes Physical Exam - Summary Physical Exam Summary: General: Well-developed, Well-nourished male. No acute distress. HEENT: Normocephalic, Atraumatic. Eyes: Conjuctiva normal, PERRL. Ears: TMs within normal limits. Nares: (-) discharge, (-) erythema. Oropharynx: Clear, mucous membranes moist, (-) exudates. Neck: Soft, FROM, (-) lymphadenopathy, (-) thyromegaly, (-) JVD. Cardiovascular: Normal sinus rhythm, (-) murmur. Lungs: Clear to auscultation bilaterally (-) wheezes, (-) rales, (-) rhonchi. Abdomen: Soft, non-tender, non-distended, (-) organomegaly, normal bowel sounds. Back: (-) CVA tenderness Extremities: No edema. Skin: Warm, dry, (-) rash. Neuro: Alert and oriented x3, no focal deficits. Psychiatric: Mood normal, affect flat. Triage Information Reviewed: Yes Vital Signs On Initial Exam: Initial Vitals Temp Pulse Resp BP Pulse Ox 98.0 F 77 18 165/92 98 09/17/19 20:42 09/17/19 20:42 09/17/19 20:42 09/17/19 20:42 09/17/19 20:42 Vital Signs Reviewed: Yes Procedures - Sedation Patient Received Moderate/Deep Sedation with Procedure: No Diagnostics - Vital Signs Vital Signs Temp Pulse Resp BP Pulse Ox 09/17/19 20:42 98.0 F 77 18 165/92 98 - Laboratory Lab Results: Lab Results 09/17/19 09/17/19 09/17/19 Range/Units 21:45 21:46 21:46 WBC 8.6 (3.5-10.8) 10^3/uL RBC 4.75 (4.18-5.48) 10^6 /uL Hgb 14.4 (14.0-18.0) g/dL Hct 42 (42-52) % MCV 87 (80-94) fL MCH 30 (27-31) pg MCHC 35 (31-36) g/dL RDW 14 (10-15) % Plt Count 231 (150-450) 10^3/uL MPV 8.9 (7.4-10.4) fL Neut % (Auto) 59.0 % Lymph % (Auto) 21.9 % Parker % (Auto) 9.9 % Eos % (Auto) 8.7 % Baso % (Auto) 0.5 % Absolute Neuts (auto) 5.1 (1.5-7.7) 10^3/ul Absolute Lymphs (auto) 1.9 (1.0-4.8) 10^3/ul Absolute Monos (auto) 0.9 H (0-0.8) 10^3/ul Absolute Eos (auto) 0.7 H (0-0.6) 10^3/ul Absolute Basos (auto) 0.0 (0-0.2) 10^3/ul Absolute Nucleated RBC 0.0 10^3/ul Nucleated RBC % 0.1 INR (Anticoag Therapy) (0.82-1.09) D-Dimer, Quantitative (Less Than 230) ng/mL Sodium 139 (135-145) mmol/L Potassium 4.3 (3.5-5.0) mmol/L Chloride 106 (101-111) mmol/L Carbon Dioxide 27 (22-32) mmol/L Anion Gap 6 (2-11) mmol/L BUN 21 (6-24) mg/dL Creatinine 1.26 H (0.67-1.17) mg/dL Est GFR ( Amer) 69.9 (>60) Est GFR (Non-Af Amer) 57.8 (>60) BUN/Creatinine Ratio 16.7 (8-20) Glucose 103 H (70-100) mg/dL Lactic Acid 0.6 (0.5-2.0) mmol/L Calcium 8.7 (8.6-10.3) mg/dL Total Bilirubin 0.30 (0.2-1.0) mg/dL AST 12 L (13-39) U/L ALT 9 (7-52) U/L Alkaline Phosphatase 58 (34-104) U/L Troponin I 0.00 (<0.03) ng/mL B-Natriuretic Peptide (<=100) pg/mL Total Protein 6.7 (6.4-8.9) g/dL Albumin 3.9 (3.2-5.2) g/dL Globulin 2.8 (2-4) g/dL Albumin/Globulin Ratio 1.4 (1-3) 09/17/19 09/17/19 Range/Units 21:46 21:46 WBC (3.5-10.8) 10^3/uL RBC (4.18-5.48) 10^6 /uL Hgb (14.0-18.0) g/dL Hct (42-52) % MCV (80-94) fL MCH (27-31) pg MCHC (31-36) g/dL RDW (10-15) % Plt Count (150-450) 10^3/uL MPV (7.4-10.4) fL Neut % (Auto) % Lymph % (Auto) % Parker % (Auto) % Eos % (Auto) % Baso % (Auto) % Absolute Neuts (auto) (1.5-7.7) 10^3/ul Absolute Lymphs (auto) (1.0-4.8) 10^3/ul Absolute Monos (auto) (0-0.8) 10^3/ul Absolute Eos (auto) (0-0.6) 10^3/ul Absolute Basos (auto) (0-0.2) 10^3/ul Absolute Nucleated RBC 10^3/ul Nucleated RBC % INR (Anticoag Therapy) 0.97 (0.82-1.09) D-Dimer, Quantitative < 200 (Less Than 230) ng/mL Sodium (135-145) mmol/L Potassium (3.5-5.0) mmol/L Chloride (101-111) mmol/L Carbon Dioxide (22-32) mmol/L Anion Gap (2-11) mmol/L BUN (6-24) mg/dL Creatinine (0.67-1.17) mg/dL Est GFR ( Amer) (>60) Est GFR (Non-Af Amer) (>60) BUN/Creatinine Ratio (8-20) Glucose (70-100) mg/dL Lactic Acid (0.5-2.0) mmol/L Calcium (8.6-10.3) mg/dL Total Bilirubin (0.2-1.0) mg/dL AST (13-39) U/L ALT (7-52) U/L Alkaline Phosphatase (34-104) U/L Troponin I (<0.03) ng/mL B-Natriuretic Peptide 63 (<=100) pg/mL Total Protein (6.4-8.9) g/dL Albumin (3.2-5.2) g/dL Globulin (2-4) g/dL Albumin/Globulin Ratio (1-3) Result Diagrams: 09/17/19 21:46 09/17/19 21:46 Lab Statement: Any lab studies that have been ordered have been reviewed, and results considered in the medical decision making process. - CT Chest/Thorax CTA CT Interpretation Completed By: Radiologist Summary of CT Findings: 1. Stable small hiatal hernia. 2. No visible acute pulmonary embolism. ED physician has reviewed this report. - EKG 2139 Cardiac Rate: Bradycardia - 55 BPM EKG Rhythm: Sinus Bradycardia Summary of EKG Findings: EKG at 2139 reveals sinus bradycardia with rate of 55 BPM and a RBBB. No ischemic changes. This EKG was reviewed and interpreted by Dr. Quesada at 2145 09/17/[address] Mendez at 09/17/2019 2350. Course/Dx - Course Course Of Treatment: 64-year-old male with shortness of breath for 2 weeks. Patient seen here for 5 days ago. Was thought to have a viral URI. Patient has followed up with his PCP since then. A d-dimer was done which was reported as elevated tonight. He was advised him to the emergency room for CTA. Patient presents with shortness of breath and yawning while at rest. He states his activity level has not changed. Does not have symptoms during activity. Does wear a sleep apnea machine. Exam is within normal limits. Workup demonstrates a normal CTA. Advised patient to follow up with pulmonology. Recommend PFTs if symptoms persist. Follow sooner for any worsening symptoms. - Diagnoses Provider Diagnoses: SOB (shortness of breath) Discharge ED - Sign-Out/Discharge Documenting (check all that apply): Patient Departure - discharge - Discharge Plan Condition: Stable Disposition: HOME Patient Education Materials: Shortness of Breath (ED) Referrals: Gabriel Cage MD [Primary Care Provider] - 2 Days Additional Instructions: PLEASE FOLLOW UP WITH YOUR PRIMARY CARE PHYSICIAN IN 1-3 DAYS AND RETURN TO THE EMERGENCY DEPARTMENT FOR ANY NEW OR WORSENING SYMPTOMS. - Billing Disposition and Condition Condition: STABLE Disposition: Home - Attestation Statements Document Initiated by Hilda: Yes Documenting Scribe: Venkat Cowart Provider For Whom Hlida is Documenting (Include Credential): Shy Foss MD Scribe Attestation: Venkat Catherine scribed for Shy Foss MD on 09/18/19 at 0336. Scribe Documentation Reviewed: Yes Provider Attestation: The documentation as recorded by the Venkat tanner accurately reflects the service I personally performed and the decisions made by me, Shy Foss MD Status of Scribe Document: Viewed
[2019-09-18 01:35] VITALS: BP 156/90
== END 2019-09-18 00:30 | disposition home or self-care (01) ==
LOC: ED 20:41
DX: R06.02 Shortness of breath (principal); K44.9 Diaphragmatic hernia without obstruction or gangrene; I45.10 Unspecified right bundle-branch block; K21.9 Gastro-esophageal reflux disease without esophagitis; F17.210 Nicotine dependence, cigarettes, uncomplicated; Z85.828 Personal history of other malignant neoplasm of skin; Z98.84 Bariatric surgery status; Z87.442 Personal history of urinary calculi
CPT/HCPCS: 36415; 71275; 80053; 83605; 83880; 84484; 85025; 85379; 85610; 93005; 99283; Q9967

== ENCOUNTER 2022-04-11 12:19 | Observation (INO) ==
[~2022-04-11 12:19] MED LIST: Buffered Lidocaine 1% SYRIN 1 ml INTRADERM ONE; Bupivacaine 0.25% EPI 200,000 30 ML SDV ONE; HYDROcodone/ACETAMIN 5/325 mg TAB PO PRN; Lactated Ringers 1000 ml BAG 1,000 ML IV SCH; Metoclopramide 5 MG/ML VIAL (10 mg) IV PRN; Naloxone 0.4 mg VIAL 0.4 mg/ml 1 ml VIAL IV PRN; Ondansetron 4 mg VIAL 2 MG/ML 2 ml VIAL IV PRN
[2022-04-11] MEDS ORDERED: Propofol 10 MG/ML 20 ML BTL ONE (12:24)
[2022-04-11] MEDS ORDERED: fentaNYL 100 mcg/2 ml 50 MCG/ML VIAL ONE ×2 (12:24→16:31)
[2022-04-11] MEDS ORDERED: Lidocaine 2% PF 5 ML VIAL ONE (12:24)
[2022-04-11] MEDS ORDERED: Dexamethasone IV 4 MG/ML VIAL 1 ml VIAL ONE (12:24)
[2022-04-11] MEDS ORDERED: Ondansetron 4 mg VIAL 2 MG/ML 2 ml VIAL ONE (12:24)
[2022-04-11] MEDS ORDERED: Rocuronium 50 mg VIAL 10 mg/ml 5 ml VIAL (50 mg) ONE ×2 (12:26→14:38)
[2022-04-11 12:30] LABS: Rapid COVID-19 Molecular Undetected (Undetected)
[2022-04-11] MEDS ORDERED: Methylene Blue 0.5 % 50 MG/10 ML AMP IV ONE (13:06)
[2022-04-11 13:22] LABS: ABS Basophils 0.1 10^3/ul (0-0.2); ABS Eosinophils 0.1 10^3/ul (0-0.6); ABS Lymphocytes 0.4 10^3/ul (1.0-4.8); ABS Monocytes 0.7 10^3/ul (0-0.8); ABS Neutrophils 2.7 10^3/ul (1.5-7.7); Eosinophil % 1.4 %; Hematocrit 45 % (42-52); Hemoglobin 14.7 g/dL (14.0-18.0); Lymphocyte % 10.9 %; Mean Corpuscular HGB Conc 33 g/dL (31-36); Mean Corpuscular Hemoglobin 30 pg (27-31); Mean Corpuscular Volume 91 fL (80-94); Mean Platelet Volume 8.7 fL (7.4-10.4); Nucleated Red Blood Cells % 0.1; Platelet Count 205 10^3/uL (150-450); Red Blood Count 4.89 10^6 /uL (4.18-5.48); Red Cell Distribution Width 14 % (10-15); White Blood Count 3.9 10^3/uL (3.5-10.8)
[2022-04-11] MEDS ORDERED: ceFAZolin 2 GM in NS PREMIX 2 GM/100 ML BAG IVPB ONE (13:26)
[2022-04-11 13:51] LABS: Albumin 4.4 g/dL (3.2-5.2); Albumin/Globulin Ratio 1.6 (1-3); Calcium 9.5 mg/dL (8.6-10.3); Globulin 2.7 g/dL (2-4); Magnesium 2.1 mg/dL (1.9-2.7); Potassium 4.3 mmol/L (3.5-5.0); Total Bilirubin 0.6 mg/dL (0.2-1.0); Total Protein 7.1 g/dL (6.4-8.9)
[2022-04-11] MEDS ORDERED: ceFAZolin 1 GM ADVAN 1 GM ADDV.VIAL IVPB ONE ×2 (15:02→15:06)
[2022-04-11] MEDS: fentaNYL 100 mcg/2 ml 50 MCG/ML VIAL IV PRN ×4 (16:32→17:00)
[2022-04-11] MEDS ORDERED: Ondansetron 4 mg VIAL 2 MG/ML 2 ml VIAL IV PRN ×2 (16:44→17:00)
[2022-04-11] MEDS ORDERED: Morphine 2 MG/ML SYRINGE IV PRN ×2 (16:52→20:35)
[2022-04-11] MEDS ORDERED: Acetaminophen IV 1 GM/100ML 1,000 MG/100 ML BAG IV PRN (16:53)
[2022-04-11] MEDS ORDERED: HYDROmorphone 1 MG/1 ML SYRINGE ONE (17:00)
[2022-04-11] MEDS ORDERED: Enoxaparin 40 MG/0.4 ML SYR SUBCUT SCH (17:00)
[2022-04-11] MEDS ORDERED: HYDROmorphone 0.5 MG/0.5 ML SYRINGE IV SLOW PU PRN (17:01)
[2022-04-11] MEDS ORDERED: Acetaminophen IV 1 GM/100ML 1,000 MG/100 ML BAG IV ONE ×2 (17:01→17:03)
[2022-04-11] MEDS: Lactated Ringers 1000 ml BAG 1,000 ML IV SCH (17:55)
[2022-04-11] MEDS: Acetaminophen IV 1 GM/100ML 1,000 MG/100 ML BAG IV PRN (23:43)
[2022-04-12] MEDS: Lactated Ringers 1000 ml BAG 1,000 ML IV SCH (04:12)
[2022-04-12] MEDS: Acetaminophen IV 1 GM/100ML 1,000 MG/100 ML BAG IV PRN (07:57)
[2022-04-12] MEDS ORDERED: Enoxaparin 40 MG/0.4 ML SYR SUBCUT SCH (09:00)
[2022-04-12 11:09] VITALS: BP 134/65
== END 2022-04-12 13:10 | disposition home or self-care (01) ==
LOC: SSU 12:19 → OR 12:19
PROVIDERS: ADMIT Surgery; ATTEND Surgery

== ENCOUNTER 2022-04-20 11:04 | Observation (INO) ==
[2022-04-20 11:22] LABS: ABS Lymphocytes 0.2 10^3/ul (1.0-4.8); ABS Monocytes 1.1 10^3/ul (0-0.8); ABS Neutrophils 6.6 10^3/ul (1.5-7.7); Hematocrit 40 % (42-52); Hemoglobin 13.4 g/dL (14.0-18.0); Lymphocyte % 3.1 %; Mean Corpuscular HGB Conc 34 g/dL (31-36); Mean Corpuscular Hemoglobin 31 pg (27-31); Mean Corpuscular Volume 90 fL (80-94); Mean Platelet Volume 9.1 fL (7.4-10.4); Platelet Count 133 10^3/uL (150-450); Red Blood Count 4.39 10^6 /uL (4.18-5.48); Red Cell Distribution Width 14 % (10-15); White Blood Count 7.9 10^3/uL (3.5-10.8)
[2022-04-20 11:33] LABS: Albumin 3.6 g/dL (3.2-5.2); Calcium 8.1 mg/dL (8.6-10.3); Magnesium 2.3 mg/dL (1.9-2.7); Potassium 3.7 mmol/L (3.5-5.0); Total Bilirubin 0.5 mg/dL (0.2-1.0)
[2022-04-20 11:39] LABS: Albumin/Globulin Ratio 1.3 (1-3); Globulin 2.7 g/dL (2-4); Total Protein 6.3 g/dL (6.4-8.9); eGFR CKD-EPI 21.7 (>60)
[2022-04-20] MEDS ORDERED: oxyCODONE 5 mg/5 ml ORAL.SOLN UDC FEED TUBE PRN ×3 (13:10→16:05)
[2022-04-20] MEDS ORDERED: NS 0.9% 1000 ml BAG 1,000 ML IV SCH ×2 (13:15)
[2022-04-20] MEDS ORDERED: Ondansetron ODT 4 mg TAB 4 MG TAB PO PRN (15:51)
[2022-04-20] MEDS ORDERED: Enoxaparin 40 MG/0.4 ML SYR SUBCUT SCH (16:00)
[2022-04-20] MEDS ORDERED: [UNRECOGNIZED DRUG - OTHER] PO PRN (16:11)
[2022-04-20] MEDS: Pantoprazole VIAL 40 MG VIAL IV SCH (16:36)
[2022-04-20] MEDS ORDERED: fentaNYL PATCH 25 MCG/HR 1 PATCH TRANSDERM SCH (17:00)
[2022-04-20] MEDS: Magic MouthWash2-BEN/MAAL/LIDO/NYST 240 ML BTL (alt formulation) SWISH SPIT SCH ×2 (17:13→20:44)
[2022-04-20 18:48] LABS: Urine Creatinine Concentration 23.67 mg/dL
[2022-04-20 18:49] LABS: Urine Appearance Clear; Urine Bilirubin Negative (Negative); Urine Color Straw; Urine Glucose Negative (Negative); Urine Ketones Negative (Negative)
[2022-04-20 18:50] LABS: Urine Blood Trace (Lysed) (Negative); Urine Nitrite Negative (Negative); Urine Protein 1+ (30 mg/dL) (Negative); Urine Urobilinogen 0.2 (Negative) (Negative); Urine pH 6.5 (5.0-9.0)
[2022-04-20 18:57] LABS: Urine Bacteria Absent (Absent); Urine Red Blood Cell Trace(0-2/hpf) (Absent); Urine White Blood Cell Trace(0-5/hpf) (Absent)
[2022-04-20] MEDS: fentaNYL Patch Check Q Shift NOTE FOLLOW UP SCH (19:13)
[2022-04-20] MEDS: Heparin 5000 UNITS/ML 1 mL VIAL SUBCUT SCH (20:44)
[2022-04-21] MEDS: Heparin 5000 UNITS/ML 1 mL VIAL SUBCUT SCH ×3 (05:33→20:50)
[2022-04-21] MEDS: NS 0.9% 1000 ml BAG 1,000 ML IV SCH ×2 (05:34)
[2022-04-21 06:08] LABS: ABS Lymphocytes 0.3 10^3/ul (1.0-4.8); ABS Monocytes 0.6 10^3/ul (0-0.8); ABS Neutrophils 4.8 10^3/ul (1.5-7.7); Eosinophil % 0.6 %; Hematocrit 39 % (42-52); Hemoglobin 12.9 g/dL (14.0-18.0); Lymphocyte % 5.2 %; Mean Corpuscular HGB Conc 33 g/dL (31-36); Mean Corpuscular Hemoglobin 30 pg (27-31); Mean Corpuscular Volume 90 fL (80-94); Mean Platelet Volume 9.9 fL (7.4-10.4); Platelet Count 117 10^3/uL (150-450); Red Cell Distribution Width 14 % (10-15); White Blood Count 5.7 10^3/uL (3.5-10.8)
[2022-04-21 07:06] LABS: Albumin 3.4 g/dL (3.2-5.2); Albumin/Globulin Ratio 1.5 (1-3); Calcium 7.4 mg/dL (8.6-10.3); Globulin 2.2 g/dL (2-4); Potassium 3.7 mmol/L (3.5-5.0); Total Bilirubin 0.5 mg/dL (0.2-1.0); Total Protein 5.6 g/dL (6.4-8.9); eGFR CKD-EPI 21.8 (>60)
[2022-04-21] MEDS: fentaNYL Patch Check Q Shift NOTE FOLLOW UP SCH ×2 (07:36→18:45)
[2022-04-21] MEDS: Magic MouthWash2-BEN/MAAL/LIDO/NYST 240 ML BTL (alt formulation) SWISH SPIT SCH ×4 (07:59→20:11)
[2022-04-21] MEDS: Polyethylene Glycol 3350 17 GM PACKET FEED TUBE SCH (07:59)
[2022-04-21] MEDS: Docusate LIQ 100 MG/10 ML UDC PO SCH (07:59)
[2022-04-21] MEDS: Senna TAB 8.6 mg TAB PO SCH (08:00)
[2022-04-21 09:31] LABS: Magnesium 1.8 mg/dL (1.9-2.7)
[2022-04-21 11:59] LABS: High Sensitivity Troponin 1 Hr 149 pg/mL (<20)
[2022-04-21] MEDS: Lactated Ringers 1000 ml BAG 1,000 ML IV SCH (12:20)
[2022-04-21 14:31] LABS: Free T4 1.11 ng/dL (0.61-1.12)
[2022-04-21] MEDS: Pantoprazole VIAL 40 MG VIAL IV SCH (16:38)
[2022-04-22] MEDS: Lactated Ringers 1000 ml BAG 1,000 ML IV SCH ×2 (02:31→18:45)
[2022-04-22] MEDS: Heparin 5000 UNITS/ML 1 mL VIAL SUBCUT SCH ×3 (05:14→21:49)
[2022-04-22 05:27] LABS: Hematocrit 37 % (42-52); Hemoglobin 12.6 g/dL (14.0-18.0); Mean Corpuscular HGB Conc 34 g/dL (31-36); Mean Corpuscular Hemoglobin 30 pg (27-31); Mean Corpuscular Volume 89 fL (80-94); Red Cell Distribution Width 14 % (10-15); White Blood Count 5.2 10^3/uL (3.5-10.8)
[2022-04-22 05:48] LABS: Calcium 7.3 mg/dL (8.6-10.3); Magnesium 1.4 mg/dL (1.9-2.7); Potassium 3.4 mmol/L (3.5-5.0); eGFR CKD-EPI 22.6 (>60)
[2022-04-22 06:23] LABS: ABS Lymphocytes 0.2 10^3/ul (1.0-4.8); ABS Monocytes 0.5 10^3/ul (0-0.8); ABS Neutrophils 4.3 10^3/ul (1.5-7.7); Eosinophil % 0.7 %; Lymphocyte % 4.2 %; Mean Platelet Volume 9.3 fL (7.4-10.4); Nucleated Red Blood Cells % 0.1; Platelet Count 80 10^3/uL (150-450)
[2022-04-22] MEDS ORDERED: Magnesium Sulfate IV 3 GM in NS 0.9% 100 ml BAG 100 ML IVPB ONE (07:48)
[2022-04-22] MEDS ORDERED: Potassium Chloride LIQUID 20 MEQ/15 ML LIQUID PO ONE (07:48)
[2022-04-22] MEDS: Magic MouthWash2-BEN/MAAL/LIDO/NYST 240 ML BTL (alt formulation) SWISH SPIT SCH ×4 (10:49→21:48)
[2022-04-22] MEDS: Senna TAB 8.6 mg TAB PO SCH (10:49)
[2022-04-22] MEDS: Polyethylene Glycol 3350 17 GM PACKET FEED TUBE SCH (10:49)
[2022-04-22] MEDS: Docusate LIQ 100 MG/10 ML UDC PO SCH (10:49)
[2022-04-22] MEDS ORDERED: fentaNYL PATCH 25 MCG/HR 1 PATCH TRANSDERM ONE (11:09)
[2022-04-22] MEDS: fentaNYL Patch Check Q Shift NOTE FOLLOW UP SCH ×2 (11:16→19:10)
[2022-04-22] MEDS ORDERED: fentaNYL PATCH 25 MCG/HR 1 PATCH TRANSDERM SCH (12:00)
[2022-04-22] MEDS: Pantoprazole VIAL 40 MG VIAL IV SCH (16:17)
[2022-04-23] MEDS: Heparin 5000 UNITS/ML 1 mL VIAL SUBCUT SCH ×2 (05:47→14:36)
[2022-04-23 06:11] LABS: ABS Lymphocytes 0.2 10^3/ul (1.0-4.8); ABS Monocytes 0.6 10^3/ul (0-0.8); ABS Neutrophils 4.8 10^3/ul (1.5-7.7); Eosinophil % 0.3 %; Hematocrit 37 % (42-52); Hemoglobin 12.5 g/dL (14.0-18.0); Mean Corpuscular HGB Conc 34 g/dL (31-36); Mean Corpuscular Hemoglobin 30 pg (27-31); Mean Corpuscular Volume 89 fL (80-94); Mean Platelet Volume 9.2 fL (7.4-10.4); Platelet Count 60 10^3/uL (150-450); Red Blood Count 4.18 10^6 /uL (4.18-5.48); Red Cell Distribution Width 14 % (10-15); White Blood Count 5.7 10^3/uL (3.5-10.8)
[2022-04-23 07:01] LABS: Calcium 7.2 mg/dL (8.6-10.3); Magnesium 1.7 mg/dL (1.9-2.7); Potassium 3.3 mmol/L (3.5-5.0); eGFR CKD-EPI 24.1 (>60)
[2022-04-23] MEDS ORDERED: Magnesium Sulfate 2 gm BAG 2 GM/50 ML BAG IVPB ONE ×2 (07:15→08:59)
[2022-04-23] MEDS ORDERED: guaiFENesin 100 mg/5 ml LIQ unit dose cup PO PRN (07:38)
[2022-04-23] MEDS: Lactated Ringers 1000 ml BAG 1,000 ML IV SCH (08:17)
[2022-04-23] MEDS: Magic MouthWash2-BEN/MAAL/LIDO/NYST 240 ML BTL (alt formulation) SWISH SPIT SCH ×2 (08:19→14:24)
[2022-04-23] MEDS: Senna TAB 8.6 mg TAB PO SCH (08:20)
[2022-04-23] MEDS: Polyethylene Glycol 3350 17 GM PACKET FEED TUBE SCH (08:20)
[2022-04-23] MEDS: Docusate LIQ 100 MG/10 ML UDC PO SCH (08:20)
[2022-04-23] MEDS: KCL 20 MEQ/100 ML IVPREMIX 20 MEQ/100 ML BAG IV SCH ×2 (09:34→13:13)
[2022-04-23] MEDS ORDERED: Scopolamine 1 mg/72hr PATCH TRANSDERM SCH (10:00)
[2022-04-23] MEDS ORDERED: Lactated Ringers 1000 ml BAG 1,000 ML IV SCH (12:10)
[2022-04-23] MEDS: fentaNYL Patch Check Q Shift NOTE FOLLOW UP SCH (13:14)
[2022-04-23 15:42] VITALS: BP 131/55
[2022-04-23] MEDS ORDERED: fentaNYL PATCH 50 MCG/HR 1 PATCH TRANSDERM SCH (16:00)
== END 2022-04-23 16:15 | disposition home or self-care (01) ==
LOC: MEDTELE 11:04 → CHOA 11:04 → SUATTDRO 15:38
PROVIDERS: ADMIT Internal Medicine Hematology & Oncology; ATTEND Internal Medicine